=== PATIENT | female | born 1985 | race African-American/Black ===

== ENCOUNTER 2017-03-06 21:37 | Emergency (ER) | payer OTHER ==
[2017-03-06 21:41] VITALS: BP 136/82; PULSE 100; TEMP 97.8; BMI 40.8
--- NOTE | 2017-03-06 22:19 | PDOC ---
[id number] RT LEG INJURY Time Seen by Provider: 03/06/17 22:09 History Source: Patient Exam Limitations: No Limitations - History of Present Illness Initial Comments: 03/06/17 22:39 My chief complaint: Fall on stairs here in the hospital complaining of pain and right lateral thigh, rt. upper arm History of present illness: Patient is a 31-year-old female with a history of PCOS complaining of pain to right lateral proximal thigh and right upper arm after leaning on stairs coming down from the lobby here in the hospital at approximately 9 PM. Reports that security asked her if she wanted medical attention however she said that she did not need any however approximately 15 minutes later she started to feel pain in her right lateral proximal thigh area and rt. upper arm. Pain in rt. lateral proximal thigh is currently a 9 out of 10 throbbing and aching in nature and right upper arm which is mild currently a 5 out of 10 aching in nature. Patient denies hitting her head or bracing her fall with her right hand or any LOC. Patient does not have any gross bony deformity noted of her right arm upper, elbow or forearm, right hand or fingers. Patient denies any or back pain. Patient is ambulating without limp currently. She denies any radiation of pain from right lateral thigh down leg. Patient denies any numbness of her right arm or leg. Past History - Past Medical History Allergies/Adverse Reactions: Allergies Allergy/AdvReac Type Severity Reaction Status Date / Time No Known Allergies Allergy Verified 03/06/17 21:39 Home Medications: Ambulatory Orders Ibuprofen 600 mg PO Q6H PRN #18 tablet MDD 4 03/06/17 Asthma: Yes - Psycho/Social/Smoking Cessation Hx Suicidal Ideation: No Smoking Status: No Smoking History: Never smoked Number of Cigarettes Smoked Daily: 0 *Physical Exam - Vital Signs Last Vital Signs Temp Pulse Resp BP Pulse Ox 97.8 F 100 H 20 136/82 100 03/06/17 21:41 03/06/17 21:41 03/06/17 21:41 03/06/17 21:41 03/06/17 21:41 Medical Decision Making - Medical Decision Making 03/06/17 22:44 Patient is a 31-year-old female with a history of PCOS complaining of pain to right lateral proximal thigh and right upper arm after leaning on stairs coming down from the lobby here in the hospital at approximately 9 PM. Reports that security asked her if she wanted medical attention however she said that she did not need any however approximately 15 minutes later she started to feel pain in her right lateral proximal thigh area and rt. upper arm. Pain in rt. lateral proximal thigh is currently a 9 out of 10 throbbing and aching in nature and right upper arm which is mild currently a 5 out of 10 aching in nature. Patient denies hitting her head or bracing her fall with her right hand or any LOC. Patient does not have any gross bony deformity noted of her right arm upper, elbow or forearm, right hand or fingers. Patient denies any or back pain. Patient is ambulating without limp currently. She denies any radiation of pain from right lateral thigh down leg. Patient denies any numbness of her right arm or leg. FALL on stair here in hospital rt. thigh pain r/o rasta injury right thigh, pelvis, hip rt. upper arm pain rt. Thigh contusion rt. upper arm contusion PLAN: urine hcg negative Ibuprofen 600 mg po now than every 6 hrs prn pain xray rt. thigh no rasta abnormality noted xray rt. pelvis/hip no rasta abnormaltiy noted follow up with orthopedist if pain continues 03/06/17 23:13 *DC/Admit/Observation/Transfer Diagnosis at time of Disposition: Fall (on) (from) other stairs and steps, initial encounter Contusion of right thigh, initial encounter Qualifiers: Encounter type: initial encounter Qualified Code(s): S70.11XA - Contusion of right thigh, initial encounter Contusion of upper arm, right Qualifiers: Encounter type: initial encounter Qualified Code(s): S40.021A - Contusion of right upper arm, initial encounter - Discharge Dispostion Disposition: HOME Condition at time of disposition: Stable - Prescriptions Prescriptions: Ibuprofen 600 mg PO Q6H PRN #18 tablet MDD 4 PRN Reason: Pain - Patient Instructions Additional Instructions: Apply ice to tender area on right thigh and right upper arm every 2 hours while awake for 10-15 minutes each time today and tomorrow Follow-up with orthopedist if pain continues next week Avoid any strenuous activities or exercise for the next few days until pain resolves Return to emergency room if pain worsens and right thigh and upper arm or any new symptoms develop Patient voiced understanding of discharge instructions and all questions were answered
[2017-03-06] MEDS ORDERED: IBUPROFEN 600 MG TABLET (FP) PO ONE ×2 (22:37→22:38)
== END 2017-03-06 23:15 | disposition home or self-care (01) ==
LOC: JERFT 21:37
DX: S70.11XA Contusion of right thigh, initial encounter (principal); S40.021A Contusion of right upper arm, initial encounter; W10.8XXA Fall (on) (from) other stairs and steps, initial encounter; Y93.89 Activity, other specified; Y92.238 Other place in hospital as the place of occurrence of the external cause
CPT/HCPCS: 73523-TC; 73552-TC-RT; 84703; 99281-25